=== PATIENT | male | born 1970 | race Caucasian/White ===

== ENCOUNTER 2017-11-07 09:58 | Day surgery (SDC) | payer OTHER ==
[~2017-11-07 09:58] MED LIST: ceFAZolin 1 GM VIAL ONE; ceFAZolin 2 GM/50 ML 2 GM/50 ML BAG IV ONE
[2017-11-07] MEDS ORDERED: LACTATED RINGERS 1,000 ML IV ONE ×2 (10:06→13:30)
[2017-11-07] MEDS ORDERED: DEXAMETHASONE 4 MG/ML VIAL IVP ONE (11:00)
[2017-11-07] MEDS ORDERED: ONDANSETRON 4 MG/2 ML VIAL IVP ONE ×2 (11:00→14:00)
[2017-11-07] MEDS ORDERED: KETOROLAC 30 MG/ML VIAL IVP ONE ×2 (11:00→14:00)
[2017-11-07] MEDS ORDERED: LIDOCAINE-MPF 2% 5 ML VIAL IM ONE ×2 (11:00→14:00)
[2017-11-07] MEDS ORDERED: fentaNYL 100 MCG/2 ML VIAL IVP ONE ×2 (11:00→14:00)
[2017-11-07] MEDS ORDERED: MIDAZOLAM 2 MG/2 ML VIAL IVP ONE (11:00)
[2017-11-07] MEDS ORDERED: PROPOFOL 200 MG/20 ML VIAL IVP ONE ×2 (11:00→14:00)
--- NOTE | 2017-11-07 11:04 | ANESTHESIA ---
Pre-Anesthesia VS, & Labs - NPO Other (water at 1000 am) - Lab Results Lab results reviewed: Yes - Diagnosis umbilical hernia (Dane,Saima) - Procedure umbilical hernia repair (DaneSaima) Vital Signs: Temp Pulse Resp BP Pulse Ox 36.1 C L 16 122/79 97 11/07/17 10:13 11/07/17 10:13 11/07/17 10:13 11/07/17 10:13 Height 6 ft Weight (kg) 109 kg Home Medications and Allergies Home Medications: Ambulatory Orders Medication Instructions Recorded Confirmed Atorvastatin Calcium 10 mg PO DAILY 11/06/17 11/07/17 Celecoxib [Celebrex] 200 mg PO DAILY PRN 11/06/17 11/07/17 Chlorthalidone 25 mg PO DAILY 11/06/17 11/07/17 Ergocalciferol [Vitamin D2] 50,000 unit PO Q7D 11/06/17 11/07/17 Gabapentin 300 mg PO BID PRN 11/06/17 11/07/17 Metoprolol Succinate 25 mg PO DAILY 11/06/17 11/07/17 Omeprazole 20 mg PO DAILY 11/06/17 11/07/17 amLODIPine [Norvasc] 2.5 mg PO DAILY 11/06/17 11/07/17 Allergies/Adverse Reactions: Allergies Allergy/AdvReac Type Severity Reaction Status Date / Time Penicillins Allergy Unknown Verified 11/06/17 10:54 Anes History & Medical History - Anesthetic History Anesthesia Complications: reports: No previous complications Family history of Anesthesia Complications: Denies Family history of Malignant Hyperthermia: Denies - Medical History Cardiovascular: reports: Hypertension, High cholesterol, Other Pulmonary: reports: None Gastrointestinal: reports: GERD Urinary: reports: None Neuro: reports: None Musculoskeletal: reports: Osteoarthritis, Other Endocrine/Autoimmune: reports: None Blood Disorders: reports: None Skin: reports: None Smoking Status: Former smoker Psychosocial: reports: No issues indicated, Alcohol - Surgical History General: EGD Eyes Ears Nose Throat (EENT): Other Orthopedic: Shoulder arthroplasty, Other Exam General: Alert, Oriented x3, Cooperative, No acute distress Dental: Other (chipped tooth) Mouth Openin Fingerbreadth Neck Mobility: Normal Mallampati classification: III Thyromental Distance: greater than 6 cm Respiratory: Lungs clear Cardiovascular: Regular rate, Normal S1, Normal S2, No murmurs Plan Anesthesia Type: General Consent for Procedure(s) Verified and Reviewed: Yes Code Status: Attempt Resuscitation ASA classification: 2-Mild systemic disease Is this case an emergency?: No
[2017-11-07] MEDS ORDERED: BUPIVACAINE 0.5% PF 30 ML VIAL ONE (11:48)
--- NOTE | 2017-11-07 13:11 | SURGERY HX AND PHYSICAL(T) ---
Surgical History & Physical - PMH/PSH/Social Hx Does the pt have a hx of MRSA?: No Neurological History: None Eyes, Ears, Nose, Throat: None Cardiovascular: Hypertension, High cholesterol, Other Respiratory: None Skin: None Endocrine/Autoimmune: None Gastrointestinal: GERD Urinary: None Musculoskeletal: Osteoarthritis, Other Blood Disorders: None Psychiatric: None General: EGD Orthopedic: Shoulder arthroplasty, Other Eyes Ears Nose Throat (EENT): Other Smoking Status: Former smoker Does the pt drink ETOH?: Yes Frequency: Occasional Does the pt have substance abuse?: No - Home Meds and Allergies Home Medications: Atorvastatin Calcium 10 mg PO DAILY 11/06/17 Celecoxib [Celebrex] 200 mg PO DAILY PRN 11/06/17 Chlorthalidone 25 mg PO DAILY 11/06/17 Ergocalciferol [Vitamin D2] 50,000 unit PO Q7D 11/06/17 Gabapentin 300 mg PO BID PRN 11/06/17 Metoprolol Succinate 25 mg PO DAILY 11/06/17 Omeprazole 20 mg PO DAILY 11/06/17 amLODIPine [Norvasc] 2.5 mg PO DAILY 11/06/17 Allergies/Adverse Reactions: Allergies Allergy/AdvReac Type Severity Reaction Status Date / Time Penicillins Allergy Unknown Verified 11/06/17 10:54 - Vital Signs Blood Pressure: 122/79 Temperature: 36.1 C Respiratory Rate: 16 O2 Saturation: 97 Weight (kg): 109 kg Height: 1.83 m - Patient Review Patient Review: Problems were reviewed with the patient during this visit. Medications were reviewed with the patient during this visit. Allergies were reviewed this patient during this visit. Pertinent Tests Reviewed: All pertitent test for this patient were reviewed. - Assessment & Plan Assessment and Plan: History of Present Illness: Consult: Periumbilical Hernia................................................................. ...Rae Gtz RN October 04, 2017 9:[address] Ander Montiel initially sent this very pleasant 47-year-old male to our office on consultation for evaluation and treatment of a umbilical hernia back on October 04, 2017. Because more than 30 days were allowed to elapse between the visit and the surgery this update is mandated. Again, I know the patient as I have treated his . The umbilical hernia has been confirmed with an ultrasound and the ultrasound also showed a diastases recti. The patient states that he had noticed a bulge and discomfort and with time the bulge and discomfort has been slowly getting worse. Lifting and straining or aggravating factors whereas lying down is an alleviating factor. The patient denies increased coughing, or difficulty with urination or constipation. Since I saw him on October 04 there have been no substantive changes to his history and physical. There are no new diagnoses. There are no new medications. There are no new allergies. No medications have been stopped. There are no new complaints. His wondered why he is going to the operating room without underwear on and I explained that this is the standard for surgery. Current Allergies: PENICILLIN V POTASSIUM (Critical) Current Meds: CHLORTHALIDONE 25 MG ORAL TABLET (CHLORTHALIDONE) Take one tablet by mouth once daily in the morning GABAPENTIN 300 MG ORAL CAPSULE (GABAPENTIN) Take one capsule by mouth twice daily OMEPRAZOLE 20 MG ORAL CAPSULE DELAYED RELEASE (OMEPRAZOLE) Take one capsule by mouth once daily for indigestion AMLODIPINE BESYLATE 2.5 MG ORAL TABLET (AMLODIPINE BESYLATE) Take one tablet by mouth once daily for high blood pressure METOPROLOL SUCCINATE ER 25 MG ORAL TABLET EXTENDED RELEASE 24 HOUR (METOPROLOL SUCCINATE) Take one tablet by mouth daily CELEBREX 200 MG ORAL CAPSULE (CELECOXIB) ATORVASTATIN CALCIUM 10 MG ORAL TABLET (ATORVASTATIN CALCIUM) Take one tablet by mouth once daily in the evening for cholesterol ERGOCALCIFEROL 55315 UNIT ORAL CAPSULE (ERGOCALCIFEROL) 1 cap daily Past Medical History: Hypertension Osteoarthritis Sleep apnea Simple review of Centricity, the chart, and discussion with the patient reveals that the information included here is incomplete and possibly incorrect. The problem list should also not be viewed as current, complete or correct. Past Surgical History: Shoulder surgery x2 submandibular hand surgery esophagus Simple review of Centricity, the chart, and discussion with the patient reveals that the information included here is incomplete and possibly incorrect. The problem list should also not be viewed as current, complete or correct. Family History Summary: Father (biol.) - Has Family History of Other Cancer - testicular - Entered On: Risk Factors: Smoked Tobacco Use: Former smoker Cigarettes: Yes Year quit: 2011 Years Since Last Quit: 6 Alcohol use: yes Drinks per day: 1 Review of Systems CONSTITUTIONAL: No weight loss, fever, chills, weakness or fatigue. HEENT: Eyes: No visual loss, blurred vision, double vision or yellow sclerae. Ears, Nose, Throat: No hearing loss, sneezing, congestion, runny nose or sore throat. SKIN: No rash or itching. CARDIOVASCULAR: No chest pain, chest pressure or chest discomfort. No palpitations or edema. RESPIRATORY: No shortness of breath, cough or sputum. GASTROINTESTINAL: No anorexia, nausea, vomiting or diarrhea. No abdominal pain or blood. GENITOURINARY: No dysuria. No impotence. NEUROLOGICAL: No headache, dizziness, syncope, paralysis, ataxia, numbness or tingling in the extremities. No change in bowel or bladder control. MUSCULOSKELETAL: No muscle, back pain, joint pain or stiffness. HEMATOLOGIC: No anemia, bleeding or bruising. LYMPHATICS: No enlarged nodes. No history of splenectomy. PSYCHIATRIC: No history of depression or anxiety. ENDOCRINOLOGIC: No reports of sweating, cold or heat intolerance. No polyuria or polydipsia. ALLERGIES: No history of asthma, hives, eczema or rhinitis. Physical Exam General: Evaluated in bed [address] [facility], 47-year old male, appears stated age, well developed, well nourished, at bedside HEENT: Normocephalic, atraumatic, extraocular movement intact, mucous membranes pink and moist, sclera anicteric and not injected Neck: Supple without pain on palpation, mass or bruit Cardiac: Regular rate and rhythm without rub, gallop, or murmur Chest: Clear to auscultation bilaterally Abdomen: Soft, nontender, normoactive bowel sounds, no hepatomegaly, no splenomegaly, obese, reducible umbilical hernia with a bias to the patient's left Genitourinary: Deferred Rectal: Deferred Extremities: No gross neurovascular problem, no clubbing, cyanosis or edema, brace on his right wrist Gait: No gross motor deficit Psychiatric: Alert and oriented to person place and time, asks and answers questions appropriately, mood and affect appropriate Impression & Recommendations: Umbilical hernia Umbilical herniorrhaphy likely with or without mesh. The indications, procedure , alternatives including not repairing the hernia, and risks including but not limited to infection, bleeding, nerve injury, and were fully explained to the patient and all questions were fully answered in the office. In the office, I chin pictures describing what a hernia is and the various ways the hernia can be repaired. I discussed the pros and cons of differing herniorrhaphies. I explained that following the surgery I did not want him lifting anything over 15 pounds for 6 weeks to allow the area to heal optimally and decrease the likelihood that the hernia would recur. Verbal and written consent was obtained. The patient in preparation for his surgery has been nothing by mouth , received a soap water shower, and will receive 2 g of Ancef preoperatively for prophylaxis against surgical infection. I also asked the patient to let me know if there is any way we can make his stay at [facility] more comfortable and he stated that he would let me know. Diastasis recti No surgery should ever be done. This was explained to the patient. The patient seemed to already have an understanding of this. 25 minutes of [id number] time was spent with the patient with over 80% of it spent in discussion, coordination of his care, and completion of the requisite paperwork
[2017-11-07] MEDS ORDERED: BUPIVACAINE 0.5% PF 30 ML VIAL INFIL ONE ×3 (13:17→14:01)
[2017-11-07] MEDS ORDERED: ACETAMINOPHEN 1,000 MG/100 ML 100 ML IV ONE (14:00)
[2017-11-07] MEDS ORDERED: ceFAZolin 2 GM/50 ML 2 GM/50 ML BAG IV ONE (14:00)
[2017-11-07] MEDS ORDERED: GLYCOPYRROLATE 1 MG/5 ML VIAL IVP ONE (14:00)
--- NOTE | 2017-11-07 14:19 | OPERATIVE REPORT ---
Operative Report - General Procedure Date: 11/07/17 Planned Procedure: Umbilical herniorrhaphy Pre-Op Diagnosis: Umbilical hernia Procedure Performed: Umbilical herniorrhaphy with mesh Post Op Diagnosis: Umbilical hernia - Procedure Note Primary Surgeon: Surya Zhou MD Anesthesia Provider: Surya Wade MD Anesthesia Technique: General LMA, Local (30 mL 1/2% marcaine) IV Fluids (mL): 400 Estimated Blood Loss (mL): 5 Complications: None. - Other Other Information/Narrative: OPERATIVE DESCRIPTION/REPORT: After verbal and written informed consent was obtained detailing the risks of infection, bleeding requiring transfusion with its risks, nerve injury, and , and after I met with the patient confirming the surgery and the site of the surgery, the patient was brought to the operative suite and placed supine on the operating table. Great care was taken to avoid pressure points to prevent pressure necrosis or nerve injury. Monitoring devices were applied along with TEDs and pneumatic compressive stockings (to prevent DVT). The patient received preoperative antibiotics for surgical prophylaxis. Dr. Surya Wade sedated and anesthetized the patient for the entire procedure. The patient was prepped and draped in the usual sterile manner. With the patient draped my initials were clearly visible. A "time in" then confirmed that the paitient was identified with 3 identifiers (name, date and medical record number), the history and physical was in the chart, the signed consent confirming the procedure was in the chart, the patient was in the correct position, the aforementioned prophylactic measures were in place or given, we had the correct personnel and equipment to complete the procedure and that anesthesia, surgery and nursing were given an opportunuty to express any concerns. With the agreement of everyone in the room, we proceeded with the operation. A standard curvilinear umbilical incision was made and dissection was carried down to the hernia sac using a combination of Metzenbaum scissors and Bovie electrocautery. The sac was cleared of overlying adherent tissue, and the fascial defect was delineated. The fascia was cleared of any adherent tissue for a distance 1.5 cm from the defect. The sac was placed back into the abdomen. The defect was closed using a Ventralex ST Hernia Patch (Ref#[id number], Lot#[id number], use by date 2019-02-21). This was secured to the fascia using interrupted 2-0 PDS sutures superiorly and inferiorly utilizing the straps and trimming the excess strap. I then closed the fascia over the mesh using a 2-0 PDS figure-8 suture. The patient was then given an ``innie by suturing the back of the umbilicus to the fascia using a 2-0 Vicryl. The fascia and skin were injected with % Marcaine. Meticulous hemostasis was obtained using Bovie electrocautery. The skin incision was approximated with a running subcuticular 4-0 Monocryl. After the prep was washed off, benzoin and steristrips were applied. A dressing was then applied. At this point a time out was performed that confirmed that all the counts were correct, the procedure that was performed, the blood loss, the IV fluids administered, and the patients condition. Having tolerated the procedure well, the patient was subsequently taken to recovery room in good and stable condition.
[2017-11-07] MEDS: HYDROmorphone 1 MG/ML CARPUJECT ONE ×2 (14:39→14:51)
[2017-11-07] MEDS ORDERED: ACETAMINOPHEN/CODEINE 300 MG/30 MG TABLET PO ONE (15:50)
[2017-11-07 15:57] VITALS: BP 143/92
== END 2017-11-07 09:59 | disposition home or self-care (01) ==
LOC: SDS 09:58
PROVIDERS: ATTEND Surgery
PROC: 0WUF0JZ Supplement Abdominal Wall with Synthetic Substitute, Open Approach (ICD-10-PCS; principal; 2017-11-07 11:00)
DX: K42.9 Umbilical hernia without obstruction or gangrene (principal); I10 Essential (primary) hypertension; Z87.891 Personal history of nicotine dependence
CPT/HCPCS: 49585; A9270; C1781; J0131; J0690; J1170; J7120

== ENCOUNTER 2020-03-02 13:16 | Outpatient (CLI) | payer OTHER ==
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
== END 2020-03-02 13:17 | disposition home or self-care (01) ==
LOC: SC 13:16
PROVIDERS: ATTEND Internal Medicine Pulmonary Disease
DX: G47.33 Obstructive sleep apnea (adult) (pediatric) (principal); E66.9 Obesity, unspecified; Z68.33 Body mass index [BMI] 33.0-33.9, adult
CPT/HCPCS: 99203; 99212